=== PATIENT | male | born 1955 | race American Indian/Alaskan Native ===

== ENCOUNTER → 2021-12-30 13:36 | Outpatient (CLI) | payer OTHER, SELFPAY ==
[2021-12-30 15:33] LABS: COVID19 -Nasal RAPID Negative (Negative)
== END ==
PROVIDERS: Visit Provider Family Medicine Sleep Medicine
DX: Z20.822 Contact with and (suspected) exposure to COVID-19 (principal)
CPT/HCPCS: 87635; C9803

== ENCOUNTER 2022-01-02 12:30 | Day surgery (SDC) | payer OTHER, SELFPAY ==
--- NOTE | 2022-01-02 | PATH_ITS ---
[facility] Accession Number: [id number] . 01 Material submitted: . PART A: cecum - CECAL POLYP PART B: colon - ASCENDING POLYP X2 PART C: colon - TRANSVERSE POLYP . 02 Diagnosis: A. Cecal Polyp: Serrated lesion, cannot completely exclude sessile serrated adenoma. . B. Ascending Polyp x2: Portions of tubular adenoma x2. . C. Transverse Polyp: Portion of tubular adenoma x1. Superficial portion of colorectal mucosa x1 with no significant histomorphologic abnormality. Additional levels through the block are noncontributory. MRV 01/04/2022 1501 Local . 02 Electronically signed: . Betsy Villela MD, Pathologist NPI- [id number] . 01 Gross description: . Part A: CECAL POLYP: Received in formalin is 1 fragment(s) of morocho, soft tissue measuring 0.5 x 0.3 x 0.3 cm submitted entirely in 1 cassette(s) Part B: ASCENDING POLYP X2: Received in formalin are multiple fragment(s) of morocho, soft tissue measuring 1.0 x 0.2 x 0.1 cm in aggregate submitted entirely in 1 cassette(s) Part C: TRANSVERSE POLYP: Received in formalin are 2 fragment(s) of morocho, soft tissue measuring 0.2 x 0.1 x 0.1 cm to 0.2 x 0.1 x 0.1 cm submitted entirely in 1 cassette(s) /CPE 01/03/2022 0938 Local . 02 Pathologist provided ICD-10: K63.5, K62.5 . 02 CPT . 382084, 644033, 515002 Specimen Comment: A courtesy copy of this report has been sent to [phone] Performed at: [address] [place] [address] [place] [address], [place], [place] [id number] MD Giovani Lopez MD Phone: [phone] Performed at: 02 [facility] [id number] [place] [id number] MD Tracie Em MD Phone: [phone]
[2022-01-02] MEDS: SODIUM CHLORIDE 0.9% 1,000 ML 84 ML IV (13:11)
[2022-01-02 13:27] VITALS: BP 131/81; PULSE 81; RESP 16; TEMP 36.2; O2SAT 97; BMI 35.9
--- NOTE | 2022-01-02 15:09 | PM.HP.1 ---
History of Present Illness History of Present Illness Date Patient Seen: 01/02/22 Time Patient Seen: 15:10 Chief complaint: SDC Narrative: Intermittent rectal bleeding. Reviewed my recent office note with [place]. No changes. Patient History Family & Social History Tobacco & Substance use: alcohol intake current alcohol intake frequency 0-2 drinks per day Substance Use Type does not use Meds Home Medications and Allergies Home Medications Medication Instructions Recorded Confirmed Type atorvastatin 20 mg tablet 20 mg PO DAILY 01/02/22 01/02/22 History losartan 25 mg tablet (Cozaar) 25 mg PO DAILY 01/02/22 01/02/22 History metoprolol succinate 50 mg 50 mg PO DAILY 01/02/22 01/02/22 History tablet,extended release 24 hr pioglitazone 15 mg tablet 15 mg PO DAILY 01/02/22 01/02/22 History sitagliptin 50 mg tablet (Januvia) 50 mg PO BID 01/02/22 01/02/22 History Allergies Allergy/AdvReac Type Severity Reaction Status Date / Time No Known Drug Allergies Allergy Verified 01/02/22 13:12 Review of Systems Review of Systems ROS: Yes All systems reviewed with the patient and are negative except as otherwise documented Exam Vital Signs (past 8 hours): - 01/02/22 13:27 Temperature 97.2 F L Pulse Rate 81 Respiratory Rate 16 Blood Pressure 131/81 Pulse Oximetry 97 Oxygen Delivery Method Room Air Const General: cooperative and comfortable Orientation: alert HENMT Head: normocephalic Ears: external ears normal Nose: external nose normal Face and sinus: normal facial exam Mouth: oral mucosae normal Eyes General: appearance normal, both eyes and all related structures Neck Neck: normal visual inspection Chest Chest: normal inspection of the chest Resp Effort & Inspection: normal respiratory effort Cardio Rate: regular rate GI Inspection: normal to inspection Skin General: no rashes or lesions noted and No jaundice Neuro General: patient alert and moves all extremities Cognition: normal cognition Speech: speech normal Extrem General: no pedal edema Psych Appearance: grossly normal Assessment & Plan Assessment & Plan narrative: 66-year-old male with intermittent rectal bleeding. Colonoscopy is pursued. Time Spent With Patient Critical Care time: I spent a total of [] minutes of critical care time on this patient's care today; this time is exclusive of procedural time.
--- NOTE | 2022-01-02 15:11 | PM.PREOP ---
Pre-operative Note COVID-19 COVID-19 status: Negative Result date/Date tested (Pos, Neg/Pending): 12/30/21 Criteria for continued procedure: Possibility delay results in more complex future surgery or treatment Interval Note History & Physical reviewed/Exam performed by Physician: Yes Changes to H&P: No ASA Class (for procedural sedation): II
--- NOTE | 2022-01-02 15:38 | P.OP.COLON_ITS ---
Operative Date/Time/Diagnoses Date of procedure: 01/02/22 Time of procedure: 15:38 Pre-op diagnosis: Intermittent rectal bleeding. Post-op diagnosis: same Procedure & Clinicians Study performed: Colonoscopy with hot snare polypectomy cold snare polypectomy and cold forceps polypectomy Same procedure as scheduled: Yes Indications: Intermittent rectal bleeding. Surgeon: Ned Galvan Procedure Notes SCOAP/Timeout: Done Procedure in detail: After the risks and benefits were explained, written and verbal informed consent was obtained. The patient was brought into the procedure room and placed into the left lateral decubitus position. Please see nurse php lamp developer notes for sedation details. Digital rectal examination was accomplished. The scope was introduced into the patient and advanced under direct visualization to the cecum as identified by the appendiceal orifice and ileocecal valve. The scope was slowly withdrawn to carefully examine the mucosa for any defects or lesions. Comprehensive imaging was accomplished throughout the rectum including the dentate line. The colon was decompressed, the scope was then removed from the patient who tolerated the procedure well. Bowel prep fair with copious irrigation was rendered adequate. Adult colonoscope Scope withdrawal time: 13 minutes Sedation minutes: 20 Complications: none Impression: Patient had rather extensive diverticulosis in the left colon. There was grade 1 internal hemorrhoids. There was some perianal cutaneous irritation. In the cecum there was a sessile 7 mm polyp removed with hot snare. In the ascending colon there was a diminutive polyp removed with cold forceps and then a slightly bigger 4 mm polyp removed with cold snare. In the mid transverse colon there was a 4th polyp diminutive in nature removed with cold forceps. Endoscopic diagnosis 1. Diverticulosis 2. Grade 1 internal hemorrhoids 3. Multiple colon polyps Post-procedure Plan for aftercare: 1. Await histopathology 2. Fiber supplementation for soft regular stools. 3. Repeat colonoscopy in 3 years time. 4. For any persistent perianal irritation, and [id number] barrier cream containing zinc oxide may be appropriate. Disposition: PACU
[2022-01-02 15:40] VITALS: BP 125/89; PULSE 74; RESP 10; TEMP 35.7; O2SAT 96
[2022-01-02 15:45] VITALS: BP 101/68; PULSE 72; RESP 10; O2SAT 94
[2022-01-02 15:50] VITALS: BP 128/68; PULSE 73; RESP 20; O2SAT 95
[2022-01-02 16:00] VITALS: BP 130/73; PULSE 75; RESP 14; TEMP 36.6; O2SAT 96
== END 2022-01-02 16:17 | disposition home or self-care (01) ==
PROVIDERS: PCP Internal Medicine; Referring Provider Internal Medicine Gastroenterology; Visit Provider Internal Medicine Gastroenterology
PROC: 0DJD8ZZ Inspection of Lower Intestinal Tract, Via Natural or Artificial Opening Endoscopic (ICD-10-PCS; CPT 45378; principal; 2022-01-02 14:30)
DX: K62.5 Hemorrhage of anus and rectum (principal); D12.0 Benign neoplasm of cecum; D12.2 Benign neoplasm of ascending colon; D12.3 Benign neoplasm of transverse colon
CPT/HCPCS: 45385; 45380; J2704